=== PATIENT | male | born 1985 | race Caucasian/White ===

== ENCOUNTER 2023-07-04 17:26 | Emergency (ER) | payer OTHER, SELFPAY ==
[2023-07-04 17:34] VITALS: BP 154/97; PULSE 102; RESP 18; TEMP 36.6; O2SAT 99; BMI 25.6
--- NOTE | 2023-07-04 17:39 | ED_ITS ---
HPI - General Adult General Date Seen: 07/04/23 Chief complaint: Urogenital Problems, Male Stated complaint: Post vasectomy pain Time Seen by Provider: 07/04/23 17:37 History of Present Illness HPI narrative: 37-year-old male who is generally healthy. He does have a history of 1 previous episode of pneumonia with wheezing treated on the outpatient basis last August. He underwent a vasectomy 10 days ago on June 24. Procedure was done by a doctor in [place]. He had originally tried this schedule the procedure through the [facility] in [place], but the procedure would have been put out by 3 months. In an effort to move the procedure up, he was scheduled with a provider in [facility]. He had the procedure done 10 days ago. For the past 5 days or so he has had gradually increasing swelling and discomfort with a lump in his left hemiscrotum, just above his left testicle. It has been getting red. It is increasingly sore. No other symptoms go with this. No urinary problems. No bowel problems. No abdominal pain. No flank pain. No fever chills or body aches. He is on lisinopril for high blood pressure but is otherwise healthy. No diabetes or immunosuppression. No known trauma. Related Data Home Medications Medication Instructions Recorded Confirmed lisinopril 20 mg tablet 20 mg PO DAILY 08/28/22 08/28/22 Previous Rx's Medication Instructions Recorded albuterol sulfate 90 mcg/actuation 2 puff inhalation Q4-6H PRN 08/28/22 aerosol inhaler shortness of breath or wheezing #8.5 grams azithromycin 250 mg tablet See Rx Instructions PO .COMPLEX #6 08/28/22 tabs levofloxacin 750 mg tablet 750 mg PO DAILY 7 days #7 tabs 07/04/23 Allergies Allergy/AdvReac Type Severity Reaction Status Date / Time No Known Drug Allergies Allergy Verified 08/28/22 09:25 [facility] Medical History (Updated 07/04/23 @ 21:06 by Jose Daniel Mccoy MD) Pneumonia ?J18.9 - Pneumonia, unspecified organism (ICD-10) Wheeze ?R06.2 - Wheezing (ICD-10) Social History Smoking Status: Never smoker Do you use any of these nicotine containing products: None Non-prescribed substance use: denies use Exam Narrative: Exam Narrative: Constitutional: Appears well-developed and well-nourished. Alert. Conversant. Non toxic. HENT: Head: Atraumatic. Nose: Nose normal. Mouth/Throat: Oral mucosa is clear and moist. no trismus. Pharynx normal. Tonsils symmetric. No tonsillar enlargement, erythema, or exudate. Eyes: Conjunctivae normal. EOM normal. Pupils equal, round, and reactive to light. No scleral icterus. Neck: Normal range of motion. Neck supple. No tracheal deviation present. Cardiovascular: Normal rate, regular rhythm. No gallop. No friction rub. No murmur heard. Symmetric radial artery pulses Pulmonary/Chest: Effort normal. No stridor. No respiratory distress. No wheezes. No rales. No rhonchi . No tenderness. Abdominal: Soft. No distension. No mass. No tenderness. No rebound. No guarding. Musculoskeletal: RUE: Normal range of motion. No tenderness. No deformity LUE: Normal range of motion. No tenderness. No deformity RLE: Normal range of motion. No edema. No tenderness. No deformity LLE: Normal range of motion. No edema. No tenderness. No deformity Lymph: No Inguinal adenopathy. : Normal circumcised penis. tender firm blood fluctuant mass in the left upper hemiscrotum, it appears to be anterior to the left testicle which I think I can feel behind the mass. The mass is somewhat pear shaped. It is roughly 5- 6 cm from a cephalad to caudad dimension. Roughly 1-2 cm lateral dimension at the top and roughly 3-4 cm lateral dimension at the bottom. No definite extension into the inguinal canal. Does not appear to be a hernia. The overlying skin is erythematous but not beefy warm. Skin on the medial thigh is normal. Skin on the posterior scrotum and perineum is normal. No purulent drainage. signs of a pointing abscess. I believe I can feel the left testicle posterior to the mass and it is only mildly tender. Neurological: Alert and oriented to person, place, and time. Normal strength. CN II-VII intact. No sensory deficit. GCS eye subscore is 4. GCS verbal subscore is 5. GCS motor subscore is 6. Normal coordination Skin: Skin is warm and dry. No rash noted. No pallor. Normal capillary refill. Psychiatric: Normal mood. Normal affect. Const: Vital Signs, click to edit/add: Vital Signs - 24 hr 07/04/23 17:34 Temperature 97.9 F Pulse Rate [Right Pulse Oximeter] 102 H Respiratory Rate 18 Blood Pressure [Ri ght Upper Arm] 154/97 H Pulse Oximetry 99 Oxygen Delivery Me thod Room Air Course Vital Signs Vital signs: Initial Vital Signs Temperature 97.9 F 07/04/23 17:34 Temperature Source Temporal Artery Scan 07/04/23 17:34 Pulse Rate 102 H 07/04/23 17:34 Respiratory Rate 18 07/04/23 17:34 Blood Pressure 154/97 H 07/04/23 17:34 Blood Pressure Mean 116 H 07/04/23 17:34 Blood Pressure Position Sitting 07/04/23 17:34 Pulse Oximetry 99 07/04/23 17:34 Oxygen Delivery Method Room Air 07/04/23 17:34 Vital Signs Temperature 97.9 F 07/04/23 17:34 Pulse Rate 102 H 07/04/23 17:34 Respiratory Rate 18 07/04/23 17:34 Blood Pressure 154/97 H 07/04/23 17:34 Pulse Oximetry 99 07/04/23 17:34 Oxygen Delivery Method Room Air 07/04/23 17:34 Temperature 97.9 F 07/04/23 17:34 Pulse Rate 102 H 07/04/23 17:34 Respiratory Rate 18 07/04/23 17:34 Blood Pressure 154/97 H 07/04/23 17:34 Pulse Oximetry 99 07/04/23 17:34 Oxygen Delivery Method Room Air 07/04/23 17:34 Medications Administered Medications: Discontinued Medications Generic Name Dose Route Start Last Admin Trade Name Everettq PRN Reason Stop Dose Admin Levofloxacin 750 mg 07/04/23 20:45 07/04/23 20:52 Levofloxacin 750 Mg Tablet PO 07/04/23 20:46 750 mg ONCE ONE Administration Medical Decision Making [facility] Narrative Medical decision making narrative: 37-year-old generally healthy male presenting to the ER today with pain, swelling, redness of his left hemiscrotum on postop day 10 after a vasectomy. This was done by Dr. Nguyen, in [facility] on June 24. He has noticed the swelling and redness involving over 5 days. Differential includes postoperative hematoma, seroma, versus evolving abscess. Clinical exam is somewhat concerning for abscess because there is redness of the overlying skin and fairly significant induration on my exam that actually caused me to over estimate the true size of the fluid pocket compared to the results from ultrasound. Arguing against abscess is the fact that he has no systemic symptoms or fever. Laboratory workup is equivocal. White count is minimally elevated and CRP is minimally abnormal. However procalcitonin is low. At this point he is not systemically ill or septic or toxic. He does not require IV antibiotics or hospitalization. He is started on p.o. [id number] in the ER [facility]. I do think he needs close outpatient follow-up with a provider capable of performing a drainage of a scrotal abscess. To that and, efforts to arrange follow-up were undertaken. We do not have urology coverage here in [place]. I called our general surgeon, Dr. Brown and she advises that the patient follow-up with his provider from [facility], since it is their postoperative complication. I contacted [facility]. For his part the patient is grateful for care and willing to follow up with anyone. He agrees that he feels comfortable going home [facility]. Pain is t olerable. He will use ibuprofen or Tylenol. Discussed ice for 15 minutes every 3-4 hours to help reduce swelling and redness. We made efforts to contact this patient's provider from [facility]. Had a couple of calls to [facility] to try to facilitate an outpatient follow-up but I was unsuccessful. Patient says he will be able to call them tomorrow morning to arrange his own follow-up. Will discharge home with a 7 day prescription for Levaquin. Precautions for return to the ER and need for follow-up reviewed Lab Data Labs: Lab Results 07/04/23 Range/Units 18:49 WBC 11.17 H (4.50-11.00) K/uL RBC 4.98 (4.30-5.90) m/uL Hgb 14.5 (13.5-17.5) gm/dL Hct 43.2 (37.0-53.0) % MCV 87 (80-100) fL MCH 29 (26-34) pg MCHC 34 (32-36) gm/dL RDW Coeff of Roberto 11.8 (11.5-15.5) % Plt Count 306 (140-440) K/uL Neut % (Auto) 76.6 H (42.0-72.0) % Lymph % (Auto) 14.8 L (20-44) % [place] % (Auto) 7.6 (0.0-11.0) % Eos % (Auto) 0.5 (0.0-7.0) % Baso % (Auto) 0.4 (0.0-3.0) % Neut # (Auto) 8.60 H (1.7-7.0) K/uL Lymph # (Auto) 1.70 (0.90-2.90) K/uL [place] # (Auto) 0.80 (0.00-0.90) K/UL Eos # (Auto) 0.10 (0.00-0.50) K/uL Baso # (Auto) 0.00 (0.00-0.30) K/uL Abs Immat Gran (auto) 0.00 (0.00-0.30) K/uL Imm/Tot Granulo (auto) 0.1 % Sodium 139 (135-149) mmol/L Potassium 4.0 (3.6-5.1) mmol/L Chloride 103 (96-114) mmol/L Carbon Dioxide 27 (20-32) mmol/L Anion Gap 9 (7-15) mEq/L BUN 10 (5-24) mg/dL Creatinine 0.8 (0.5-1.5) mg/dL Estimated Creat Clear 154.04 Estimated GFR 118 ml/min Glucose 99 (60-115) mg/dL Calcium 9.6 (8.4-10.6) mg/dL C-Reactive Protein 3.5 H (0.5-1.0) mg/dL Procalcitonin 0.05 (<0.50) ng/mL Imaging Data US scrotum: Attestation: I have reviewed the pertinent imaging results. Radiologist's impression: Impression: Focal left-sided scrotal wall thickening, possibly hematoma in the setting of recent surgery, with compression on the adjacent left epididymis. Otherwise, no sign of torsion or inflammation. Discharge Plan Discharge Clinical Impression: Cellulitis of scrotum Patient Disposition: Home, Self-Care Condition: Stable Instructions: Cellulitis (ED) Additional Instructions: I suspect that the swelling and pain in your scrotum is probably due to an infection of the skin and a small collection of infectious fluid in the area of your surgery. It is also possible that the fluid is a small collection of blood called hematoma (and not really an infection at all). We have started you on antibiotics to treat for possible infection here in the ER tonight. It is very important for you to follow-up tomorrow. Call the Doctor's office in [place] and ask them to get you an appointment with one of Dr Nguyen's partners (because Wendy wont be in clinic until later this week). If you're not able to get into the clinic, or if you develop worsening swelling, pain, or develop a fever, please come back to ER right away. Unfortunately, I am not able to get an appointment with your doctor arrange for you tomorrow. Please call the doctor's office tomorrow morning when they open at 8:00 a.m. to arrange a follow-up visit. Prescriptions: New levofloxacin 750 mg tablet 750 mg PO DAILY 7 Days Qty: 7 0RF No Action lisinopril 20 mg tablet 20 mg PO DAILY albuterol sulfate 90 mcg/actuation HFA aerosol inhaler 2 puff inhalation Q4-6H PRN (Reason: shortness of breath or wheezing) Qty: 8.5 0RF azithromycin 250 mg tablet See Rx Instructions PO .COMPLEX Qty: 6 0RF Rx Instructions: For 250 mg dose pack: take 500 mg today (day 1), then 250 mg for 4 days (days 2-5) PO Follow Up/Referrals: Girish Canales MD [Primary Care Provider] - Stand Alone Forms: [employer] Info Instructions
--- NOTE | 2023-07-04 17:54 | CRLHL7_ITS ---
For Patients: As a result of the Century Cures Act, medical imaging exams and procedure reports are released immediately into your electronic medical record. You may view this report before your referring provider. If you have questions, please contact your health care provider. Indication: Left testicular swelling status post vasectomy times 10 days. Technique: Ultrasound of the scrotum and contents. Sonographic romero-scale images were obtained with spectral and color Doppler waveform and spectral waveform analysis of the testicles. Comparison: None. Findings: Bother testicles are normal in size and echotexture. No masses. No suspicious calcifications. Arterial and venous color Doppler blood flow and spectral waveforms are present in both testicles. Epididymis: Multiple small right epididymal head cysts. Additional tiny left epididymal head cyst. Normal blood flow. Other: Focal left-sided scrotal wall thickening. Small left hydrocele likely reactive. No sign of varicocele. Impression: Focal left-sided scrotal wall thickening, possibly hematoma in the setting of recent surgery, with compression on the adjacent left epididymis. Otherwise, no sign of torsion or inflammation. Small left hydrocele likely reactive. Dictated by Jimmy Geller MD @ 07/04/2023 7:21:09 PM (Electronically Signed)
--- OUTSIDE RECORDS SUMMARY | 2023-07-04 18:31 | XMS_ITS | Clinical Summary ---
Author Name Unknown Organization [employer] [facility] Address [place], [place] [address] Care Team Providers Care Sales Appointment Coordinator Name Role Phone Girish Canales MD Primary Care Provider [phone] Allergies No known active allergies Medications Medication Sig Dispensed Refills Start Date End Date Status lisinopriL (PRINIVIL; ZESTRIL) 20 mg tabletIndications:Esse ntial hypertension Take 1 Tablet (20 mg) by mouth once daily. 90 Tablet 3 12/31/2022 Active Active Problems Problem Noted Date Diagnosed Date Essential hypertension 02/25/2016 Encounters Date Type Department Care Team Description 07/04/2023 4:25 PM EDUCATIONAL SPEECH LANGUAGE CLINICIAN Telemedicine [facility] [address] [place] [id number] Talia Massey NP Telehealth (epididymitis/No vitals taken -virtual visit./) 07/04/2023 Telephone [facility] [address] [place] [address] Girish Canales MD swollen testicles 06/24/2023 2:00 PM EDUCATIONAL SPEECH LANGUAGE CLINICIAN Procedure Only [facility] [address] [place] [address] Carlos Nguyen MD Vasectomy 04/06/2023 8:45 AM CDT Office Visit [facility] [address] [place] [address] Carlos Nguyen MD Consult (vasectomy/) 04/06/2023 Travel from Last 3 Months Immunizations Name Administration Dates Next Due Hepatitis A (Peds) 01/03/2007 Tdap 10/09/2016 Family History Medical History Relation Name Comments Hypertension Father Cancer Maternal Uncle Brain Cancer-ovarian Mother Hypertension Mother Hypertension Paternal Uncle Started on me ds in his 20s Hypertension Sister Cancer-colon No Family History Cancer-prostate No Family History Relation Name Status Comments Father Maternal Uncle Mother Paternal Uncle Sister Social History Tobacco Use Types Packs/Day Years Used Date Smoking Tobacco: Never Passive Smoke Exposure: Never Smokeless Tobacco: Never Tobacco Cessation:Counseling Given: Not Answered Alcohol Use Standard Drinks/Week Comments Yes 0 (1 standard drink = 0.6 oz pur e alcohol) 5-7 drinks per week PHQ-2 Answer Date Recorded PHQ-2 TOTAL SCORE 0 12/31/2022 Social Connections Answer Date Recorded Frequency of Communication with Friends and Fami ly Not on file 06/06/2021 Financial Resource Strain Answer Date R ecorded Difficulty of Paying Living Expenses Not on file 06/06/2021 Difficulty of Paying Living Expenses Not on file 06/06/2021 Sex and Gender Information Value Date Recorded Sex Assigned at Not on file Gender Identity Not on file Sexual Orientation Not on file Obstetrics History Last Filed Vital Signs Vital Sign Reading Time Taken Comments Blood Pressure 112/64 06/24/2023 1:50 PM EDUCATIONAL SPEECH LANGUAGE CLINICIAN Pulse 76 06/24/2023 1:50 PM EDUCATIONAL SPEECH LANGUAGE CLINICIAN Temperature 36.6 ??C (97.8 ??F) 12/31/2022 1:17 PM CD T Respiratory Rate 20 12/31/2022 1:17 PM CDT Oxygen Saturation 98% 12/31/2022 1:17 PM CDT Inhaled Oxygen Concentration - - Weight 96.2 kg (212 lb) 06/24/2023 1:50 PM EDUCATIONAL SPEECH LANGUAGE CLINICIAN Height 192.4 cm (6' 3.75) 12/31/2022 1:17 PM CD T Body Mass Index 25.98 12/31/2022 1:17 PM CDT Plan of Treatment Health Maintenance Due Date Last Done Comments COVID-19 vaccine series (#1) 05/20/1988 Influenza for age 9-49 02/04/2023 BMI (ht and wt on same day) for age 18+ 01/01/2024 12/31/2022, 10/26/2021, 07/25/2020, Additional history exists Depression screening for age 12+ 01/01/2024 12/31/2022, 10/26/2021, 07/25/2020, Additional history exists Tetanus booster 10/09/2026 10/09/2016 Lipids for age 35-44 01/01/2028 12/31/2022, 10/26/2021, 07/25/2020 Tdap Completed 10/09/2016 HIV for age 15-65 Completed 12/31/2022 Hepatitis C screening for age 18-79 Completed 12/31/2022 Pneumococcal series for age 6-64 Aged Out No longer eligible based on patient's age to complete this topic Care Teams Sales Appointment Coordinator Relationship Specialty Start Date End Date Girish Canales MD [address] [place] [address] PCP - General Family Practice 11/11/15
[2023-07-04 18:55] LABS: Basophils Percent Auto 0.4 % (0.0-3.0); Eosinophils Percent Auto 0.5 % (0.0-7.0); Hematocrit 43.2 % (37.0-53.0); Hemoglobin* 14.5 gm/dL (13.5-17.5); Immature Granulocytes Pct Auto 0.1 %; Lymphocytes Percent Auto 14.8 % (20-44); Mean Corpuscular HGB Conc 34 gm/dL (32-36); Mean Corpuscular Hemoglobin 29 pg (26-34); Mean Corpuscular Volume 87 fL (80-100); Monocytes Percent Auto 7.6 % (0.0-11.0); Neutrophils Percent Auto 76.6 % (42.0-72.0); Platelet Count* 306 K/uL (140-440); RDW Coefficient of Variation % 11.8 % (11.5-15.5); Red Blood Count 4.98 m/uL (4.30-5.90); White Blood Count* 11.17 K/uL (4.50-11.00)
[2023-07-04 19:01] LABS: Slide Review Reflex No
[2023-07-04 19:17] LABS: Chloride* 103 mmol/L (96-114); Sodium* 139 mmol/L (135-149)
[2023-07-04 19:20] LABS: Creatinine* 0.8 mg/dL (0.5-1.5); Est. Creatinine Clearance* 154.04; Estimated Glomerular Filt Rate 118 ml/min
[2023-07-04 19:21] LABS: Anion Gap 9 mEq/L (7-15); Blood Urea Nitrogen* 10 mg/dL (5-24); Calcium* 9.6 mg/dL (8.4-10.6); Carbon Dioxide* 27 mmol/L (20-32); Glucose* 99 mg/dL (60-115)
[2023-07-04 19:24] LABS: C Reactive Protein* 3.5 mg/dL (0.5-1.0)
[2023-07-04 19:38] LABS: Procalcitonin* 0.05 ng/mL (<0.50)
[2023-07-04] MEDS: levoFLOXacin 750 MG TABLET PO (20:52)
== END 2023-07-04 22:08 | disposition home or self-care (01) ==
PROVIDERS: Emergency Provider Emergency Medicine; PCP Surgery
DX: L03.314 Cellulitis of groin (principal)
CPT/HCPCS: 36415; 76870; 80048; 84145; 85025; 86140; 93976; 99284; A9270

== ENCOUNTER 2024-04-08 17:12 | Emergency (ER) | payer OTHER, SELFPAY ==
[2024-04-08 17:51] VITALS: BP 158/106; PULSE 94; RESP 18; TEMP 36.3; O2SAT 97; BMI 25.0
--- NOTE | 2024-04-08 18:04 | CRLHL7_ITS ---
For Patients: As a result of the Cures Act, medical imaging exams and procedure reports are released immediately into your electronic medical record. You may view this report before your referring provider. If you have questions, please contact your health care provider. Indication: Laceration Technique: Two views of the left hand Comparison: None Findings/Impression: No acute fracture or malalignment. The osseous structures are unremarkable in appearance. Soft tissue laceration along the lateral aspect of the base of the 5th phalanx without retained radiopaque foreign bodies. Dictated by Alexis Mcdonnell MD @ 04/08/2024 6:23:03 PM (Electronically Signed)
--- OUTSIDE RECORDS SUMMARY | 2024-04-08 18:10 | XMS_ITS | Clinical Summary ---
Author Organization [facility] Address [place], [place] [address] Care Team Providers Care Lining Layer Name Role Phone Girish Canales MD Primary Care Provider [phone]- [phone] Allergies No known active allergies Medications Medication Sig Dispensed Refills Start Date End Date Status lisinopriL (PRINIVIL; ZESTRIL) 20 mg tabletIndications:Esse ntial hypertension Take 1 Tablet (20 mg) by mouth once daily. 90 Tablet 3 03/02/2024 Active Active Problems Problem Noted Date Diagnosed Date Essential hypertension 02/25/2016 Encounters Date Type Department Care Team Description 03/23/2024 Orders Only [facility] [address] [place] [address] Girish Canales MD Lab (Orders Update) 03/02/2024 9:40 AM CDT Office Visit [facility] [address] [place] [address] Girish Canales MD Medication Management (Routine follow up) 03/02/2024 Travel 02/07/2024 Telephone [facility] [address] [place] [address] Girish Canales MD Refill Request (lisinopriL (PRINIVIL; ZESTRIL) 20 mg tablet) from Last 3 Months Immunizations Name Administration Dates Next Due Hepatitis A (Peds) 01/03/2007 Tdap 10/09/2016 Family History Medical History Relation Name Comments Hypertension Father Cancer Maternal Uncle Brain Cancer-ovarian Mother Celiac disease Mother Hypertension Mother Hypertension Paternal Uncle Started [...] Answered Alcohol Use Standard Drinks/Week Comments Yes 1 (1 standard drink = 0.6 oz pur e alcohol) PHQ-2 Answer Date Recorded PHQ-2 TOTAL SCORE 0 03/02/2024 Social Connections Answer Date Recorded Do you often feel lonely or isolated from those around you? 0 03/02/2024 Alcohol Use Answer Date Recorded How often do you have a drink containing alcohol ? 2 03/02/2024 How many drinks containing a lcohol do you have on a typical day when you are drinking? 0 03/02/2024 How often do you have five or more drinks on one occasion? 0 03/02/2024 Financial Resource Strain Answer Date R ecorded Difficulty of Paying Living Expenses 3 03/02/2024 Difficulty of Paying Living Expenses Not on file 03/02/2024 Food Insecurity Answer Date Recorded Do you worry your food will run out before you are able to buy more? 1 03/02/2024 Transportation Needs Answer Date Record ed Does lack of transportation keep you from medica l appointments? 1 03/02/2024 Does lack of transportation keep you from work, meetings or getting things that you need? 1 03/02/2024 Housing Stability Answer Date Recorded What is your housing situation today? 1 03/02/2024 Sex and Gender Information Value Date Recorded Sex Assigned at Not on file Gender Identity Not on file Sexual Orientation Not on file Obstetrics History Last Filed Vital Signs Vital Sign Reading Time Taken Comments Blood Pressure 121/81 03/02/2024 9:47 AM CDT Pulse 79 03/02/2024 9:47 AM CDT Temperature 36.6 ??C (97.8 ??F) 12/31/2022 1:17 PM CD T Respiratory Rate 20 12/31/2022 1:17 PM CDT Oxygen Saturation 99% 03/02/2024 9:47 AM CDT Inhaled Oxygen Concentration - - Weight 91.4 kg (201 lb 8 oz) 03/02/2024 9:47 AM CDT Height 192 cm (6' 3.59) 03/02/2024 9:47 AM CDT Body Mass Index 24.79 03/02/2024 9:47 AM CDT Plan of Treatment Health Maintenance Due Date Last Done Comments COVID-19 vaccine series (2023- season) 2024 Influenza for age 9-49 02/05/2024 BMI (ht and wt on same day) for age 18+ 03/02/2025 03/02/2024, 12/31/2022, 10/26/2021, Additional history exists Depression screening for age 12+ 03/02/2025 03/02/2024, 12/31/2022, 10/26/2021, Additional history exists Tetanus booster 10/09/2026 10/09/2016 Lipids for age 35-44 01/01/2028 12/31/2022, 10/26/2021, 07/25/2020 Tdap Completed 10/09/2016 HIV for age 15-65 Completed 12/31/2022 Hepatitis C screening for age 18-79 Completed 12/31/2022 Pneumococcal series for age 6-64 Aged Out No longer eligible based on patient's age to complete this topic Procedures Procedure Name Priority Date/Time Associated Diagnosis Comments LC HIV-1/O/2, 4TH GENERATION Routine 12/31/2022 1:39 PM CDT [facility] LC HCV ANTIBODY RFX TO QUANT PCR Routine 12/31/2022 1:39 PM CDT [facility] LIPID PANEL W REFLEX MEASURED LDL Routine 12/31/2022 1:39 PM CDT [facility] from Last 3 Months or Most Recently Relevant to Health Maintenance Results * LC HCV ANTIBODY RFX TO QUANT PCR (12/31/2022 1:39 PM CDT) HCV Ab Non Reactive Non Reactive 01/05/2023 3:08 AM CDT [facility] Blood BLOOD SPECIMEN / Unknown Venipuncture / Unknown 12/31/2022 1:39 PM CDT 12/31/2022 1:39 PM CDT Narrative [facility] - 01/05/2023 3:08 AM CDT Performed at: ??[address] ??[id number] [employer] Principal: Jigar Chun MD, Phone: ??[phone] Tristan Garibay MD LABORATORY Performing Organization Address City/[facility]/ZIP Co de Phone Number [facility] ([facility]) [address] [place] [address], * LC HIV-1/O/2, 4TH GENERATION (12/31/2022 1:39 PM CDT) HIV Scr 4th Gen Non Reactive Non Reactive 01/05/2023 4:[address] [facility] ([facility]) Comment: HIV Negative HIV-1/HIV-2 antibodies and HIV-1 p24 antigen were NOT detected. There is no laboratory evidence of HIV infection. Blood BLOOD SPECIMEN / Unknown Venipuncture / Unknown 12/31/2022 1:39 PM CDT 12/31/2022 1:[address] [facility] ([facility]) - 01/05/2023 4:08 AM CDT Performed at: ??[address] ??[id number] [employer] Principal: Jigar Chun MD, Phone: ??[phone] Tristan Garibay MD LABORATORY Performing Organization Address [facility]/ZIP Co de Phone Number [facility] ([facility]) [address] [place] [address] * LIPID PANEL W REFLEX MEASURED LDL (12/31/2022 1:39 PM CDT) CHOLESTEROL,TOTAL 181 100 - 199 mg/dL 01/01/2023 12:13 AM CDT [facility] Comment: Cholesterol, Total Reference Ranges Desirable <200 mg/dL Borderline 200-239 mg/dL High >=240 mg/dL TRIGLYCERIDES 105 <150 mg/dL 01/01/2023 12:13 AM CDT [facility] HDL CHOLESTEROL 44 >40 mg/dL 12:13 AM CDT [facility] NON-HDL CHOLESTEROL 137 <145 mg/dl 01/01/2023 12:13 AM CDT [facility] CHOL/HDL RATIO 4.11 <4.50 01/01/2023 12:13 AM CDT [facility] LDL CHOLESTEROL 116 <=130 mg/dL 01/01/2023 12:13 AM CDT [facility] VLDL CHOLESTEROL 21 <=30 mg/dL 01/01/2023 12:13 AM CDT [facility] TR[facility] PROVIDER ORDERED STATUS RANDOM 01/01/2023 12:13 AM T [facility] Blood BLOOD SPECIMEN / Unknown Venipuncture / Unknown 12/31/2022 1:39 PM CDT 12/31/2022 1:39 PM CDT Tristan Garibay MD CHEMISTRY [facility] [address] [place] [address], [place] from Last 3 Months or Most Recently Relevant to Health Maintenance Care Teams Lining Layer Relationship Specialty Start Date End Date Girish Canales MD [address] [place] [address] PCP - General Family Practice 11/11/15
[2024-04-08] MEDS: LIDOCAINE 1 % PF 30 ML INJECTION (18:29)
[2024-04-08] MEDS: cephALEXin 500 MG CAPSULE PO (19:10)
--- NOTE | 2024-04-08 21:06 | ED_ITS ---
HPI - Wound/Laceration General Date Seen: 04/08/24 Chief Complaint: Laceration/Wound Stated Complaint: L hand lac Time Seen by Provider: 04/08/24 17:29 Source: patient and family Mode of arrival: ambulatory Limitations: no limitations History of Present Illness HPI narrative: Patient is a 38-year-old gentleman who lacerated his left hand, while he was using table saw. About 1 hour earlier. There was some bleeding, he denies any numbness tingling or weakness in his hand, comes in with his for an assessment, tetanus is up-to-date. No history of immunosuppression. He does take lisinopril for elevated blood pressure that he has done for at least [address]: home Patient tetanus UTD: Yes Context: accidental Associated symptoms: none Treatments prior to arrival: bandage Related Data Home Medications ?Medication ?Instructions ?Recorded ?Confirmed lisinopril 20 mg tablet 20 mg PO DAILY 08/28/22 08/28/22 Previous Rx's ?Medication ?Instructions ?Recorded albuterol sulfate 90 mcg/actuation 2 puff inhalation Q4-6H PRN 08/28/22 aerosol inhaler shortness of breath or wheezing #8.5 grams azithromycin 250 mg tablet See Rx Instructions PO .COMPLEX #6 08/28/22 tabs levofloxacin 750 mg tablet 750 mg PO DAILY 7 days #7 tabs 07/04/23 Allergies Allergy/AdvReac Type Severity Reaction Status Date / Time No Known Drug Allergies Allergy Verified 08/28/22 09:25 Review of Systems Status of ROS: Reports: 6 or more systems reviewed and unremarkable except as noted in History and below PFSH PFS Medical History Pneumonia ?J18.9 - Pneumonia, unspecified organism (ICD-10) Wheeze ?R06.2 - Wheezing (ICD-10) Social History Smoking Status: Never smoker Do you use any of these nicotine containing products: None Non-prescribed substance use: denies use Exam Narrative: Exam Narrative: On examination he is in no apparent distress there is a laceration rate around the 5th metacarpal, extending from the ulnar side rate around. Laceration length is approximately 1 x 5-2 inches. There is some oozing. He has full range of motion, of his 4th in his 5th finger however. With normal flexion at MCP normally PIP and the D IP joints. Extension is also normal but testing. He has normal abduction of his fingers also. Sensation is normal up the ulnar side of his finger also. His cap refill is normal. I used 1% lidocaine without epinephrine x8 mL for anesthesia into the wound. I then was able to irrigate out with 500 mL of sterile water. Sterile prep and drape was done. The wound was down to the bone. But not into the bone, and his x-ray was negative. He is I was able to close the wound. Which was is soft issue. And no disruption of his tendons noted he he was given 500 mg of Keflex for the during the procedure. Layered closure with 3-0 Vicryl x2 deep sutures. And then the 4-0 Prolene times 10 sutures on the outside. Hemostasis was excellent, with estimated blood loss of approximately 20 mL. No foreign bodies seen. Dressing is applied with bacitracin and Telfa. I did inform done ulnar gutter splint for him. Post splinting had excellent cap refill. Const: Vital Signs, click to edit/add: Vital Signs - 24 hr 04/08/24 17:51 Temperature 97.3 F L Pulse Rate [Pulse Oximeter] 94 Respiratory Rate 18 Blood Pressure [Ri ght Upper Arm] 158/106 H Pulse Oximetry 97 Oxygen Delivery Me thod Room Air Documenting provider has reviewed patient's vital signs: yes Course Vital Signs Vital signs: Initial Vital Signs Temperature 97.3 F L 04/08/24 17:51 Temperature Source Temporal Artery Scan 04/08/24 17:51 Pulse Rate 94 04/08/24 17:51 Pulse Rhythm Regular 04/08/24 17:51 Respiratory Rate 18 04/08/24 17:51 Blood Pressure 158/106 H 04/08/24 17:51 Blood Pressure Mean 123 H 04/08/24 17:51 Blood Pressure Position Sitting 04/08/24 17:51 Pulse Oximetry 97 04/08/24 17:51 Oxygen Delivery Method Room Air 04/08/24 17:51 Vital Signs Temperature 97.3 F L 04/08/24 17:51 Pulse Rate 94 04/08/24 17:51 Respiratory Rate 18 04/08/24 17:51 Blood Pressure 158/106 H 04/08/24 17:51 Pulse Oximetry 97 04/08/24 17:51 Oxygen Delivery Method Room Air 04/08/24 17:51 Temperature 97.3 F L 04/08/24 17:51 Pulse Rate 94 04/08/24 17:51 Respiratory Rate 18 04/08/24 17:51 Blood Pressure 158/106 H 04/08/24 17:51 Pulse Oximetry 97 04/08/24 17:51 Oxygen Delivery Method Room Air 04/08/24 17:51 Medications Administered Medications: Discontinued Medications Generic Name Dose Route Start Last Admin Trade Name Freq PRN Reason Stop Dose Admin Cephalexin HCl 500 mg 04/08/24 19:07 04/08/24 19:10 Cephalexin 500 Mg Capsule PO 04/08/24 19:08 500 mg ONCE ONE Administration Lidocaine HCl 30 ml 04/08/24 18:25 04/08/24 18:29 Lidocaine 1 % Pf 30 Ml INJECTION 30 ml ONCE PRN Administration Discharge Plan Discharge Clinical Impression: Laceration Patient Disposition: Home w/ Parent or Adult Condition: Stable Instructions: Laceration (DC) Additional Instructions: Home rest elevation as much as possible take antibiotics as directed, once the numbing medicine wears off he will need some ibuprofen or Tylenol. Please see Dr.H jeronimo in 2 days for recheck of your wound, I did not find evidence of any neurovascular, ligamentous or tendon. He may feel that he wants you to see either Orthopedics or Hand surgery, I would like you to wear the splint for the next 7 days. Return here if signs of infection which are increasing pain fevers chills redness rashes she Activity Level: Light activity Prescriptions: No Action lisinopril 20 mg tablet 20 mg PO DAILY albuterol sulfate 90 mcg/actuation HFA aerosol inhaler 2 puff inhalation Q4-6H PRN (Reason: shortness of breath or wheezing) Qty: 8.5 0RF azithromycin 250 mg tablet See Rx Instructions PO .COMPLEX Qty: 6 0RF Rx Instructions: For 250 mg dose pack: take 500 mg today (day 1), then 250 mg for 4 days (days 2-5) PO levofloxacin 750 mg tablet 750 mg PO DAILY 7 Days Qty: 7 0RF Follow Up/Referrals: Girish Canales MD [Primary Care Provider] - Stand Alone Forms: [employer] System Info Instructions
== END 2024-04-08 19:45 | disposition home or self-care (01) ==
PROVIDERS: Emergency Provider Family Medicine; PCP Surgery
DX: S61.217A Laceration without foreign body of left little finger without damage to nail, initial encounter (principal); W31.2XXA Contact with powered woodworking and forming machines, initial encounter
CPT/HCPCS: 12013; 73120; 99283; A9270; J2003